=== PATIENT | male | born 1990 | race African-American/Black ===

== ENCOUNTER 2018-12-06 09:55 | Outpatient (CLI) | payer OTHER ==
[2018-12-06 12:18] LABS: HGB - HEMOGLOBIN 14.5 g/dL (14.0-18.0); MEAN CORPUSCULAR HGB CONC 31.8 g/dL (32.0-36.0); MEAN CORPUSCULAR VOLUME 84.8 fL (80.0-94.0); MEAN PLATELET VOLUME 10.3 fL (7.4-11.4); RED BLOOD COUNT 5.38 10^6/uL (4.70-6.10); RED CELL DISTRIBUTION WIDTH 12.9 % (12.0-15.0); WHITE BLOOD COUNT 7.9 x10^3/uL (4.8-10.8)
[2018-12-06 13:03] LABS: HB2 TOTAL 15.2 g/dL; HEMOGLOBIN A1C 0.52 g/dL; HEMOGLOBIN A1C % 5.3 % (4.6-6.2)
[2018-12-06 13:29] LABS: CHOL/HDL RATIO 5.1 (<5.0); CHOLESTEROL 214 mg/dL; HDL CHOLESTEROL 42 mg/dL; LDL CHOLESTEROL,CALCULATED 159 mg/dL; LDL/HDL RATIO 3.8 (<3.6); URIC ACID 6.6 mg/dL (2.6-7.2); VLDL CHOLESTEROL 13 mg/dL
[2018-12-06 13:30] LABS: CRP - C-REACTIVE PROTEIN < 1.0 mg/dL (0-1.0)
[2018-12-06 14:19] LABS: RHEUMATOID FACTOR NEGATIVE (Negative)
[2018-12-08 20:16] LABS: ANA SCREEN NEGATIVE (NEGATIVE)
== END 2018-12-06 10:05 | disposition home or self-care (01) ==
LOC: LAB.N 09:55
PROVIDERS: ATTEND Family Medicine
DX: E78.5 Hyperlipidemia, unspecified (principal); Z13.1 Encounter for screening for diabetes mellitus; R79.89 Other specified abnormal findings of blood chemistry
CPT/HCPCS: 36415; 80061; 83036; 83721; 84550; 85027; 85651; 86038; 86140; 86200; 86430

== ENCOUNTER 2020-03-31 08:00 | Outpatient (CLI) | payer OTHER ==
[2020-03-31 13:21] LABS: BASOPHILS % (AUTO) 0.6 %; EOSINOPHILS # (AUTO) 0.3 10^3/uL (0.0-0.7); HGB - HEMOGLOBIN 14.2 g/dL (14.0-18.0); LYMPHOCYTES # (AUTO) 1.7 10^3/uL (1.5-3.5); LYMPHOCYTES % (AUTO) 26.3 %; MEAN CORPUSCULAR HEMOGLOBIN 27.3 pg (27.0-31.0); MEAN CORPUSCULAR HGB CONC 31.8 g/dL (32.0-36.0); MEAN CORPUSCULAR VOLUME 85.8 fL (80.0-94.0); MEAN PLATELET VOLUME 10.3 fL (7.4-11.4); MONOCYTES # (AUTO) 0.7 10^3/uL (0.0-1.0); MONOCYTES % (AUTO) 10.3 %; NEUTROPHILS # (AUTO) 3.8 10^3/uL (1.5-6.6); NEUTROPHILS % (AUTO) 58.3 %; PLT - PLATELET COUNT 237 10^3/uL (130-450); RED CELL DISTRIBUTION WIDTH 12.7 % (12.0-15.0); WHITE BLOOD COUNT 6.5 x10^3/uL (4.8-10.8)
[2020-03-31 13:34] LABS: ALBUMIN 4.3 g/dL (3.2-5.5); ALBUMIN/GLOBULIN RATIO 1.2 (1.0-2.2); ALKALINE PHOSPHATASE 90 IU/L (42-121); ALT ALANINE AMINOTRANSFERASE 48 IU/L (10-60); AST ASPARTATE AMINOTRANSFERASE 37 IU/L (10-42); BILIRUBIN,TOTAL 0.7 mg/dL (0.2-1.0); BUN - BLOOD UREA NITROGEN 13 mg/dL (6-20); CALCIUM 9.3 mg/dL (8.5-10.3); CARBON DIOXIDE - CO2 26 mmol/L (21-32); CHLORIDE 104 mmol/L (101-111); CHOLESTEROL 244 mg/dL; CREATININE 1.1 mg/dL (0.6-1.2); GLUCOSE 98 mg/dL (70-100); HDL CHOLESTEROL 49 mg/dL; LDL CHOLESTEROL,CALCULATED 183 mg/dL; LDL/HDL RATIO 3.7 (<3.6); SODIUM 139 mmol/L (135-145); TOTAL PROTEIN 7.9 g/dL (6.7-8.2); VLDL CHOLESTEROL 12 mg/dL
== END 2020-03-31 23:59 | disposition home or self-care (01) ==
LOC: LAB.WCP 08:00
PROVIDERS: ATTEND Nurse Practitioner Family
DX: E78.5 Hyperlipidemia, unspecified (principal); I10 Essential (primary) hypertension
CPT/HCPCS: 36415; 80053; 80061; 83721; 84443; 85025

== ENCOUNTER 2020-12-14 09:46 | Outpatient (CLI) | payer OTHER ==
[2020-12-14 12:00] LABS: BASOPHILS # (AUTO) 0.1 10^3/uL (0.0-0.1); BASOPHILS % (AUTO) 0.8 %; EOSINOPHILS # (AUTO) 0.2 10^3/uL (0.0-0.7); EOSINOPHILS % (AUTO) 2.3 %; HCT - HEMATOCRIT 44.6 % (42.0-52.0); HGB - HEMOGLOBIN 14.2 g/dL (14.0-18.0); LYMPHOCYTES # (AUTO) 1.6 10^3/uL (1.5-3.5); LYMPHOCYTES % (AUTO) 24.8 %; MEAN CORPUSCULAR HEMOGLOBIN 27.2 pg (27.0-31.0); MEAN CORPUSCULAR HGB CONC 31.8 g/dL (32.0-36.0); MEAN CORPUSCULAR VOLUME 85.4 fL (80.0-94.0); MEAN PLATELET VOLUME 10.3 fL (7.4-11.4); MONOCYTES # (AUTO) 0.6 10^3/uL (0.0-1.0); MONOCYTES % (AUTO) 9.9 %; NEUTROPHILS % (AUTO) 61.7 %; PLT - PLATELET COUNT 241 10^3/uL (130-450); RED BLOOD COUNT 5.22 10^6/uL (4.70-6.10); WHITE BLOOD COUNT 6.4 x10^3/uL (4.8-10.8)
[2020-12-14 12:07] LABS: BILIRUBIN,URINE NEGATIVE (NEGATIVE); GLUCOSE, URINE (UA) NEGATIVE (NEGATIVE); KETONES,URINE (UA) NEGATIVE (NEGATIVE); LEUKOCYTE ESTERASE, URINE NEGATIVE (NEGATIVE); NITRITE,URINE NEGATIVE (NEGATIVE); OCCULT BLOOD,URINE TRACE-LYSE (NEGATIVE); PH,URINE 5.5 PH (5.0-7.5); PROTEIN,URINE NEGATIVE (NEGATIVE); UROBILINOGEN,URINE 0.2 (NORMAL) E.U./dL (NORMAL)
[2020-12-14 12:15] LABS: BACTERIA,URINE Rare /HPF (None Seen); CLARITY,URINE CLEAR (CLEAR); MUCUS,URINE Few Strands; RBC,URINE 0-5 /HPF (0-5); SQUAMOUS EPITHELIAL CELL,UR RARE Squamous (<= Few); WBC,URINE 0-3 /HPF (0-3)
[2020-12-14 12:24] LABS: ALBUMIN 4.3 g/dL (3.2-5.5); ALBUMIN/GLOBULIN RATIO 1.2 (1.0-2.2); ALKALINE PHOSPHATASE 98 IU/L (42-121); ALT ALANINE AMINOTRANSFERASE 63 IU/L (10-60); AST ASPARTATE AMINOTRANSFERASE 41 IU/L (10-42); BILIRUBIN,TOTAL 0.6 mg/dL (0.2-1.0); BUN - BLOOD UREA NITROGEN 11 mg/dL (6-20); CALCIUM 9.2 mg/dL (8.5-10.3); CARBON DIOXIDE - CO2 28 mmol/L (21-32); CHLORIDE 102 mmol/L (101-111); CHOL/HDL RATIO 4.8 (<5.0); CHOLESTEROL 232 mg/dL; CREATININE 1.1 mg/dL (0.6-1.2); GFR - MDRD 97 (>89); GLUCOSE 98 mg/dL (70-100); HDL CHOLESTEROL 48 mg/dL; LDL CHOLESTEROL,CALCULATED 173 mg/dL; LDL/HDL RATIO 3.6 (<3.6); SODIUM 141 mmol/L (135-145); TRIGLYCERIDES 57 mg/dL; VLDL CHOLESTEROL 11 mg/dL
[2020-12-14 12:30] LABS: ESTIMATED AVERAGE GLUCOSE 114 mg/dL (70-100); HEMOGLOBIN A1c% 5.6 % (4.27-6.07)
[2020-12-14 12:39] LABS: THYROID STIMULATING HORMONE 1.19 uIU/mL (0.34-5.60)
== END 2020-12-14 23:59 | disposition home or self-care (01) ==
LOC: LAB.WCP 09:46
PROVIDERS: ATTEND Nurse Practitioner
DX: I10 Essential (primary) hypertension (principal); E78.5 Hyperlipidemia, unspecified; E66.01 Morbid (severe) obesity due to excess calories; R53.83 Other fatigue
CPT/HCPCS: 36415; 80053; 80061; 81001; 83036; 83721; 84443; 85025; 87086

== ENCOUNTER 2021-01-13 07:40 | Emergency (ER) | payer OTHER ==
[2021-01-13] MEDS ORDERED: SUCRALFATE 1 GM/10 ML UDC PO STA (07:59)
[2021-01-13] MEDS ORDERED: MAG HYDROX/AL HYDROX/SIMETH 30 ML UDC PO STA (07:59)
--- NOTE | 2021-01-13 08:23 | ED Physician Documentation ---
History of Present Illness - Stated complaint Stated Complaint: CHEST PX - Chief complaint Chief Complaint: Cardiac - History obtained from History obtained from: Patient - History of Present Illness Timing: How many days ago (3) Pain level max: 2 Pain level now: 0 - Additonal information Additional information: 30-year-old male presents to the emergency department complaint of intermittent chest pain for the past year. He states he has had chest pain intermittently over the past 3 days. Has been seen multiple times he states for same. States normally thought to be due to gastritis or costochondritis. He states this morning he woke up with a burning pain in the back of his throat. Lasted about 1 minute and then resolved. Came in for evaluation. Nothing makes it better or worse. Currently asymptomatic. Review of Systems Constitutional: denies: Fever, Chills GI: denies: Vomiting Skin: denies: Rash Musculoskeletal: denies: Neck pain, Back pain Neurologic: denies: Focal weakness, Numbness, Headache PD PAST MEDICAL HISTORY - Past Medical History Past Medical History: Yes GI: GERD - Past Surgical History Past Surgical History: No - Present Medications Home Medications: Ambulatory Orders Medication Instructions Recorded Confirmed Ibuprofen [Motrin] 600 mg PO Q6H PRN #30 tab 07/12/13 10/23/14 Omeprazole [Prilosec] 20 mg PO DAILY #30 capsule. 10/23/14 - Allergies Allergies/Adverse Reactions: Allergies Allergy/AdvReac Type Severity Reaction Status Date / Time No Known Drug Allergies Allergy Verified 01/13/21 07:48 - Living Situation Living Situation: reports: With family Living Arrangement: reports: At home - Social History Does the pt smoke?: No Smoking Status: Never smoker Does the pt drink ETOH?: No Does the pt have substance abuse?: No - Immunizations Immunizations are current?: No - POLST Patient has POLST: No PD ED PE NORMAL - Vitals Vital signs reviewed: Yes - General General: Alert and oriented X 3, No acute distress - HEENT HEENT: Moist mucous membranes - Neck Neck: Supple, no meningeal sign - Cardiac Cardiac: RRR, Strong equal pulses - Respiratory Respiratory: No respiratory distress, Clear bilaterally - Abdomen Abdomen: Soft, Non tender, Non distended - Derm Derm: Warm and dry - Extremities Extremities: No edema, No calf tenderness / cord - Neuro Neuro: Alert and oriented X 3 Results - Vitals Vitals: Vital Signs - 24 hr 01/13/21 01/13/21 01/13/21 07:42 08:10 09:21 Temperature 37 C Heart Rate 106 H 94 93 Respiratory 18 15 18 Rate Blood Pressure 177/104 H 162/107 H 143/95 H O2 Saturation 98 100 99 01/13/21 10:14 Temperature Heart Rate 90 Respiratory 17 Rate Blood Pressure 135/74 H O2 Saturation 100 Oxygen O2 Source Room air - EKG (time done) 0743 Rate: Rate (enter#) (100) Rhythm: Sinus tachycardia [place]: Normal Intervals: Normal [place] QRS: Normal Ischemia: Normal ST segments - Labs Labs: Laboratory Tests 01/13/21 01/13/21 01/13/21 08:29 08:29 08:29 WBC 8.3 RBC 5.26 Hgb 14.2 Hct 44.8 MCV 85.2 MCH 27.0 MCHC 31.7 L RDW 13.2 Plt Count 251 MPV 9.2 Neut # (Auto) 5.5 Lymph # (Auto) 1.6 [place] # (Auto) 1.0 Eos # (Auto) 0.1 Baso # (Auto) 0.0 Absolute Nucleated RBC 0.00 Nucleated RBC % 0.0 Sodium 141 Potassium 3.7 Chloride 103 Carbon Dioxide 28 Anion Gap 10.0 BUN 15 Creatinine 1.0 Estimated GFR (MDRD) 108 Glucose 105 H Calcium 9.3 Total Bilirubin 0.5 AST 33 ALT 58 Alkaline Phosphatase 120 Troponin I High Sens 6.7 Total Protein 8.2 Albumin 4.3 Globulin 3.8 Albumin/Globulin Ratio 1.1 Lipase 32 - Rads (name of study) cxr Radiology: Final report received, EMP read contemporaneously, See rad report (no acute abnormality) PD MEDICAL DECISION MAKING - ED course Complexity details: reviewed results, re-evaluated patient, considered differential (No ST elevation [place], no aortic dissection, no PE, no tension pneumothorax, no aortic aneurysm), d/w patient ED course: Patient does feel better with a GI cocktail. Possible gastritis versus GERD. Recommend endoscopy with his doctor. He has been having chest pain for over a year, may benefit from a stress test, will leave this decision up to his doctor. Patient is well-appearing, nontoxic. Afebrile. Patient counseled regarding signs and symptoms for which I believe and urgent re-evaluation would be necessary. Patient with good understanding of and agreement to plan and is comfortable going home at this time This document was made in part using voice recognition software. While efforts are made to proofread this document, sound alike and grammatical errors may occur. Departure - Departure Disposition: 01 Home, Self Care Clinical Impression: Chest pain Qualifiers: Chest pain type: unspecified Qualified Code(s): R07.9 - Chest pain, unspecified Condition: Good Instructions: ED Chest Pain Atypical Unkn Cause Follow-Up: Ann Deal ARNP [Primary Care Provider] - Within 1 week Comments: The cause of your symptoms is unclear today. Please follow up with your doctor for further care. You should have an endoscopy for possible GERD/gastritis and a cardiac stress test. Discharge Date/Time: 01/13/21 10:15
[2021-01-13 08:45] LABS: BASOPHILS % (AUTO) 0.5 %; EOSINOPHILS # (AUTO) 0.1 10^3/uL (0.0-0.7); EOSINOPHILS % (AUTO) 1.6 %; HCT - HEMATOCRIT 44.8 % (42.0-52.0); HGB - HEMOGLOBIN 14.2 g/dL (14.0-18.0); LYMPHOCYTES # (AUTO) 1.6 10^3/uL (1.5-3.5); LYMPHOCYTES % (AUTO) 19.6 %; MEAN CORPUSCULAR HGB CONC 31.7 g/dL (32.0-36.0); MEAN CORPUSCULAR VOLUME 85.2 fL (80.0-94.0); MEAN PLATELET VOLUME 9.2 fL (7.4-11.4); MONOCYTES % (AUTO) 11.6 %; NEUTROPHILS # (AUTO) 5.5 10^3/uL (1.5-6.6); NEUTROPHILS % (AUTO) 66.1 %; PLT - PLATELET COUNT 251 10^3/uL (130-450); RED BLOOD COUNT 5.26 10^6/uL (4.70-6.10); RED CELL DISTRIBUTION WIDTH 13.2 % (12.0-15.0); WHITE BLOOD COUNT 8.3 x10^3/uL (4.8-10.8)
[2021-01-13 08:52] LABS: ALBUMIN 4.3 g/dL (3.2-5.5); ALBUMIN/GLOBULIN RATIO 1.1 (1.0-2.2); BILIRUBIN,TOTAL 0.5 mg/dL (0.2-1.0); CALCIUM 9.3 mg/dL (8.5-10.3); POTASSIUM 3.7 mmol/L (3.5-5.0); TOTAL PROTEIN 8.2 g/dL (6.7-8.2)
--- NOTE | 2021-01-13 08:56 | XRAY Report ---
PROCEDURE: Chest 1 View X-Ray INDICATIONS: Chest Pain TECHNIQUE: One view of the chest was acquired. COMPARISON: July 12, 2013 FINDINGS: SUPPORT DEVICES: None. LUNGS/PLEURA: No focal consolidation, pleural effusion or space-occupying pneumothorax. MEDIASTINUM: The cardiomediastinal silhouette is within normal limits. BONES/SOFT TISSUES: No acute abnormality. IMPRESSION: 1.No acute cardiopulmonary abnormality. Reviewed by: Holland Vasquez MD on 01/13/2021 8:55 AM PDT Approved by: Holland Vasquez MD on 01/13/2021 8:55 AM PDT Station ID: [id number]
[2021-01-13 10:15] VITALS: BP 135/74
== END 2021-01-13 10:15 | disposition home or self-care (01) ==
LOC: ED 07:40
DX: R07.9 Chest pain, unspecified (principal); R00.0 Tachycardia, unspecified
CPT/HCPCS: 36415; 71045; 80053; 83690; 84484; 85025; 93005; 99283; 99284; A9270

== ENCOUNTER 2021-04-19 08:00 | Outpatient (CLI) | payer OTHER | END 2021-04-19 23:59 | disposition home or self-care (01) | LOC: LAB.N 08:00 | PROVIDERS: ATTEND Physician Assistant Medical | DX: R06.02 Shortness of breath (principal); Z20.822 Contact with and (suspected) exposure to COVID-19 ==

== ENCOUNTER 2021-05-06 10:26 | Outpatient (CLI) | payer OTHER ==
--- NOTE | 2021-05-06 11:12 | CARDIAC PROCEDURE NOTE ---
Stress Test Report Service Date: 05/06/21 Service Time: 11:00 Ordering Provider: Chente Romano MD Indication for Test: Assess chest discomfort. Significant Medical History: Young man with morbid obesity, hypertension and intermittent history of both upper abdominal and lower chest discomfort. Reports prior diagnosis of "costochondritis" a couple of years ago. He was seen by Dr Romano in early January with concern for both upper abdominal and chest discomfort, latter primarily occurring with exertion. He had previously been quite active with regular Elliptical walking and attendant weight loss, but has decreased this activity during Covid pandemic for unclear reasons. He was started on omeprazole by Dr Romano with subsequent decrease in symptoms and underwent evaluation for possible GI endoscopy, which was deferred due to symptom improvement with ongoing PPI treatment. Cardiac Risk Factors: History of hypertension treated for 2-3 years and untreated hyperlipidemia; no prior tobacco smoking history, diabetes or awareness of close family members with heart attack or stroke. Type of Stress Test: ETT with Echocardiography Procedure: -Exercise Treadmill Test- After signing informed consent, the patient underwent resting echo imaging and then performed treadmill exercise using a Zhen protocol. The patient exercised for 7 minutes 38 seconds and achieved a peak heart rate of 188 (97 percent predicted maximum heart rate for age), and an estimated workload of 9.6 METS. The test was terminated primarily due to leg fatigue/discomfort, with increasing shortness of breath. Resting heart rate: 76 Peak heart rate: 188 Normal response to exercise. Resting BP: 160/98 Peak BP: 236/61 Hypertensive at baseline with physiologic response of systolic and diastolic BP to exercise. Rhythm during exercise: Sinus rhythm throughout. Symptoms: As above, with no report of chest or abdominal discomfort. EKG at rest showed normal sinus rhythm with rSr' pattern in V1/V2 consistent with partial RV conduction delay; QRS/ST/T morphologies otherwise normal. EKG at peak stress showed no ischemia by EKG criteria. In Recovery HR and BP normally decreased towards resting levels (122 and 153/55 at 7 minutes). Echo imaging was performed at rest and with stress will be reported separately. Ori Ramos MD, was present throughout this treadmill stress study and supervised it in its entirety. Summary: 1) Exercise tolerance markedly reduced for age as evidenced by SUJEY of 44%. 2) Normal resting EKG. 3) Adequate level of exercise was achieved on this treadmill stress test. 4) Hypertensive at rest with physiologic BP response to exercise. 5) No ischemic changes by EKG criteria were seen at peak stress. 6) Echo image interpretation reveals normal left ventricular size and systolic function, with appropriate hyperdynamic augmentation of all segments with exercise, indicating no evidence of prior infarct or inducible ischemia. No evidence of valvular abnormalities or elevated estimated pulmonary artery systolic pressure on limited rest screening. See separate report for more details. CONCLUSIONS: 1) Overall low risk treadmill stress echocardiogram with no symptom, EKG or echo evidence of inducible ischemia. 2) Reduced exercise capacity for age, likely related to poor conditioning, which he was encouraged to address, with increased aerobic activity. 3) Favorable response to PPI treatment suggests symptoms most likely GI in o rigin; he was advised to confer with his GI provider regarding PPI treatment recommendations.
== END 2021-05-06 10:27 | disposition home or self-care (01) ==
LOC: DI 10:26
PROVIDERS: ATTEND Family Medicine
DX: R07.89 Other chest pain (principal); I10 Essential (primary) hypertension; E78.5 Hyperlipidemia, unspecified; E66.01 Morbid (severe) obesity due to excess calories
CPT/HCPCS: 93016; 93017; 93018; 93350

== ENCOUNTER 2021-11-23 08:00 | Outpatient (CLI) | payer MEDICAID, OTHER ==
--- NOTE | 2021-11-24 12:31 | XRAY Report ---
PROCEDURE: Ankle 3 View LT INDICATIONS: L ANKLE PX TECHNIQUE: 3 views of the ankle were acquired. COMPARISON: None. FINDINGS: Bones: No fractures or dislocations. Ankle mortise is normally aligned. Mild degenerative joint di sease in ankle. Calcaneal spurring. No suspicious bony lesions. Soft tissues: Trace tibiotalar joint effusion. Achilles tendon appears normal. IMPRESSION: 1. Mild degenerative joint disease. 2. Calcaneal spurring. Reviewed by: Lupe Roblero MD on 11/24/2021 12:30 PM PDT Approved by: Lupe Roblero MD on 11/24/2021 12:30 PM PDT Station ID: [id number]
== END 2021-11-23 23:59 | disposition home or self-care (01) ==
LOC: DI.N 08:00
PROVIDERS: ATTEND Registered Nurse
DX: M19.072 Primary osteoarthritis, left ankle and foot (principal); M77.32 Calcaneal spur, left foot

== ENCOUNTER 2022-01-31 09:44 | Outpatient (CLI) | payer MEDICAID ==
[2022-01-31 12:21] LABS: BASOPHILS # (AUTO) 0.1 10^3/uL (0.0-0.1); BASOPHILS % (AUTO) 0.6 %; EOSINOPHILS # (AUTO) 0.2 10^3/uL (0.0-0.7); HCT - HEMATOCRIT 45.4 % (42.0-52.0); HGB - HEMOGLOBIN 14.3 g/dL (14.0-18.0); LYMPHOCYTES # (AUTO) 1.8 10^3/uL (1.5-3.5); LYMPHOCYTES % (AUTO) 21.6 %; MEAN CORPUSCULAR HEMOGLOBIN 26.2 pg (27.0-31.0); MEAN CORPUSCULAR HGB CONC 31.5 g/dL (32.0-36.0); MEAN CORPUSCULAR VOLUME 83.3 fL (80.0-94.0); MEAN PLATELET VOLUME 11.6 fL (7.4-11.4); MONOCYTES # (AUTO) 0.8 10^3/uL (0.0-1.0); NEUTROPHILS # (AUTO) 5.6 10^3/uL (1.5-6.6); NEUTROPHILS % (AUTO) 66.3 %; PLT - PLATELET COUNT 206 10^3/uL (130-450); RED BLOOD COUNT 5.45 10^6/uL (4.70-6.10); RED CELL DISTRIBUTION WIDTH 13.3 % (12.0-15.0); WHITE BLOOD COUNT 8.4 x10^3/uL (4.8-10.8)
[2022-01-31 12:46] LABS: ALBUMIN/GLOBULIN RATIO 0.9 (1.0-2.2); ALKALINE PHOSPHATASE 126 IU/L (42-121); ALT ALANINE AMINOTRANSFERASE 54 IU/L (10-60); AST ASPARTATE AMINOTRANSFERASE 36 IU/L (10-42); BILIRUBIN,TOTAL 0.5 mg/dL (0.2-1.0); BUN - BLOOD UREA NITROGEN 11 mg/dL (6-20); CALCIUM 9.2 mg/dL (8.5-10.3); CARBON DIOXIDE - CO2 29 mmol/L (21-32); CHLORIDE 101 mmol/L (101-111); GFR - MDRD 107 (>89); GLUCOSE 95 mg/dL (70-100); POTASSIUM 3.8 mmol/L (3.5-5.0); SODIUM 139 mmol/L (135-145); TOTAL PROTEIN 8.3 g/dL (6.7-8.2)
[2022-01-31 12:49] LABS: CRP - C-REACTIVE PROTEIN < 1.0 mg/dL (0-1.0)
[2022-01-31 12:57] LABS: THYROID STIMULATING HORMONE 1.51 uIU/mL (0.34-5.60)
[2022-01-31 12:59] LABS: FREE T4 (FREE THYROXINE) 0.84 ng/dL (0.58-1.64)
== END 2022-01-31 09:45 | disposition home or self-care (01) ==
LOC: LAB.N 09:44
PROVIDERS: ATTEND Nurse Practitioner
DX: R20.2 Paresthesia of skin (principal)
CPT/HCPCS: 36415; 80053; 84439; 84443; 85025; 85651; 86140

== ENCOUNTER 2022-02-22 09:53 | Outpatient (CLI) | payer MEDICAID ==
--- NOTE | 2022-02-23 11:57 | XRAY Report ---
PROCEDURE: Knee 2 View LT INDICATIONS: L KNEE PX TECHNIQUE: 2 views of the left knee(s) were acquired. COMPARISON: X-ray left knee, 06/21/2015. FINDINGS: Bones: No fractures or dislocations. No suspicious bony lesions. Mild tricompartmental knee joint d egeneration. Soft tissues: Small joint effusion. No suspicious soft tissue calcifications. IMPRESSION: 1. Mild degenerative joint disease. 2. Small knee joint fusion. Reviewed by: Lupe Roblero MD on 02/23/2022 11:56 AM PST Approved by: Lupe Roblero MD on 02/23/2022 11:56 AM PST Station ID: [id number]
== END 2022-02-22 23:59 | disposition home or self-care (01) ==
LOC: DI.N 09:53
PROVIDERS: ATTEND Nurse Practitioner
DX: M17.12 Unilateral primary osteoarthritis, left knee (principal); M25.462 Effusion, left knee

== ENCOUNTER 2022-04-04 15:14 | Outpatient (CLI) | payer MEDICAID ==
--- NOTE | 2022-04-04 15:24 | XRAY Report ---
PROCEDURE: Knee 4 View LT INDICATIONS: LEFT KNEE PAIN TECHNIQUE: 4 views of the left knee(s) were acquired. One view of the right knee COMPARISON: 02/22/2022 FINDINGS: Bones: No displaced fracture. No dislocation. Minimal medial compartment joint narrowing. Soft tissues: Small suspected joint effusion is present. Patella dharmesh. The partially visualized right knee is unremarkable. IMPRESSION: Patella dharmesh. No acute osseous abnormality otherwise. Suspected small joint effusion. If there is high concern for further derangement, consider MRI evaluation. Reviewed by: Supa Oneal MD on 04/04/2022 3:23 PM PST Approved by: Supa Oneal MD on 04/04/2022 3:23 PM PST Station ID: [id number]
== END 2022-04-04 15:16 | disposition home or self-care (01) ==
LOC: DI.WOS 15:14
PROVIDERS: ATTEND Orthopaedic Surgery
DX: M25.562 Pain in left knee (principal); M22.8X2 Other disorders of patella, left knee

== ENCOUNTER 2023-05-24 09:39 | Outpatient (CLI) | payer MEDICAID ==
[2023-05-24 12:16] LABS: BASOPHILS # (AUTO) 0.1 10^3/uL (0.0-0.1); BASOPHILS % (AUTO) 0.7 %; EOSINOPHILS # (AUTO) 0.2 10^3/uL (0.0-0.7); EOSINOPHILS % (AUTO) 2.6 %; HCT - HEMATOCRIT 43.5 % (42.0-52.0); HGB - HEMOGLOBIN 13.7 g/dL (14.0-18.0); LYMPHOCYTES % (AUTO) 28.4 %; MEAN CORPUSCULAR HEMOGLOBIN 26.2 pg (27.0-31.0); MEAN CORPUSCULAR HGB CONC 31.5 g/dL (32.0-36.0); MEAN CORPUSCULAR VOLUME 83.2 fL (80.0-94.0); MEAN PLATELET VOLUME 10.1 fL (7.4-11.4); MONOCYTES # (AUTO) 0.7 10^3/uL (0.0-1.0); MONOCYTES % (AUTO) 10.5 %; NEUTROPHILS % (AUTO) 57.4 %; PLT - PLATELET COUNT 247 10^3/uL (130-450); RED BLOOD COUNT 5.23 10^6/uL (4.70-6.10); RED CELL DISTRIBUTION WIDTH 13.5 % (12.0-15.0)
[2023-05-24 12:31] LABS: ALBUMIN 4.3 g/dL (3.2-5.5); ALBUMIN/GLOBULIN RATIO 1.3 (1.0-2.2); ALKALINE PHOSPHATASE 144 IU/L (42-121); ALT ALANINE AMINOTRANSFERASE 59 IU/L (10-60); AST ASPARTATE AMINOTRANSFERASE 30 IU/L (10-42); BILIRUBIN,TOTAL 0.5 mg/dL (0.2-1.0); BUN - BLOOD UREA NITROGEN 11 mg/dL (6-20); CALCIUM 9.4 mg/dL (8.5-10.3); CARBON DIOXIDE - CO2 32 mmol/L (21-32); CHLORIDE 101 mmol/L (101-111); CHOL/HDL RATIO 4.8 (<5.0); CHOLESTEROL 209 mg/dL; GFR - MDRD 106 (>89); GLUCOSE 101 mg/dL (74-104); HDL CHOLESTEROL 44 mg/dL; LDL CHOLESTEROL,CALCULATED 145 mg/dL; LDL/HDL RATIO 3.3 (<3.6); POTASSIUM 3.5 mmol/L (3.5-4.5); SODIUM 140 mmol/L (135-145); TOTAL PROTEIN 7.6 g/dL (6.4-8.9); TRIGLYCERIDES 98 mg/dL (48-352); VLDL CHOLESTEROL 20 mg/dL
[2023-05-24 12:36] LABS: THYROID STIMULATING HORMONE 1.13 uIU/mL (0.34-5.60)
[2023-05-24 20:51] LABS: ESTIMATED AVERAGE GLUCOSE 111 mg/dL (70-100); HEMOGLOBIN A1c% 5.5 % (4.27-6.07)
[2023-05-25 09:25] LABS: CRP - C-REACTIVE PROTEIN < 0.5 mg/dL (<0.5); URIC ACID 6.5 mg/dL (4.4-7.6)
== END 2023-05-24 09:40 | disposition home or self-care (01) ==
LOC: LAB.N 09:39
PROVIDERS: ATTEND Nurse Practitioner
DX: I10 Essential (primary) hypertension (principal); E78.5 Hyperlipidemia, unspecified; E66.01 Morbid (severe) obesity due to excess calories; R20.2 Paresthesia of skin; M79.672 Pain in left foot; M79.671 Pain in right foot
CPT/HCPCS: 36415; 80053; 80061; 82607; 83036; 83721; 84443; 84550; 85025; 86140

== ENCOUNTER 2023-07-14 07:00 | Outpatient (CLI) | payer MEDICAID ==
--- NOTE | 2023-07-14 17:20 | Ultrasound Report ---
PROCEDURE: Duplex Ext Veins Left INDICATIONS: EDEMA, HYPERTENSION TECHNIQUE: Real-time imaging, as well as color and pulse Doppler interrogation, were performed of the lower extr emity deep veins from the inguinal ligament to the popliteal fossa. Attempted visualization of the ca lf veins was performed. COMPARISON: None. FINDINGS: The deep veins are normally compressible, and free of intraluminal thrombus. Color and pu lse Doppler demonstrate normal phasic intraluminal flow. There is normal augmentation response to di stal compression maneuver. IMPRESSION: No deep venous thrombosis of the visualized lower extremity. Reviewed by: Adian Polanco MD on 07/14/2023 5:19 PM PDT Approved by: Adina Polanco MD on 07/14/2023 5:19 PM PDT Station ID: [id number]
--- NOTE | 2023-07-14 17:21 | Ultrasound Report ---
PROCEDURE: Ankle Brachial Index INDICATIONS: EDEMA, HYPERTENSION TECHNIQUE: Ankle-brachial indices were obtained bilaterally and recorded. COMPARISONS: None. FINDINGS: Right ankle brachial index (AYDE): 1.1 Left ankle brachial index (AYDE): 1.0 Right brachial blood pressure 175/109, brachial pressure 195/101 Left brachial pressure 116/95, ankle pressure 187/110. Right popliteal artery has a velocity of 54 cm/s with triphasic flow. Dorsalis pedis artery has a riki ocity of 63 cm/s with triphasic flow. Left popliteal artery has a velocity of 56 cm/s with triphasic flow. Dorsalis pedis artery has a [place] of 68 cm/s with triphasic flow. Healing potential: Ankle pressures >55 mm Hg in non-diabetics and >80 mm Hg in diabetics are likely to achieve primary h ealing of ischemic foot ulcers. Toe pressures >30 mm Hg are likely to achieve primary healing of ischemic foot ulcers, toe or transme tatarsal amputations. IMPRESSION: ABIs are within normal limits. Reviewed by: Adina Polanco MD on 07/14/2023 5:20 PM PDT Approved by: Adina Polanco MD on 07/14/2023 5:20 PM PDT Station ID: [id number]
== END 2023-07-14 07:01 | disposition home or self-care (01) ==
LOC: DI 07:00
PROVIDERS: ATTEND Physician Assistant Medical
DX: R60.9 Edema, unspecified (principal); I10 Essential (primary) hypertension
CPT/HCPCS: 93922

== ENCOUNTER 2023-09-19 21:42 | Emergency (ER) | payer MEDICAID ==
[2023-09-19 22:24] LABS: BILIRUBIN,URINE NEGATIVE (NEGATIVE); GLUCOSE, URINE (UA) NEGATIVE (NEGATIVE); KETONES,URINE (UA) NEGATIVE (NEGATIVE); LEUKOCYTE ESTERASE, URINE NEGATIVE (NEGATIVE); NITRITE,URINE NEGATIVE (NEGATIVE); OCCULT BLOOD,URINE TRACE-INTA (NEGATIVE); PH,URINE 6.5 PH (5.0-7.5); PROTEIN,URINE NEGATIVE (NEGATIVE); UROBILINOGEN,URINE 0.2 (NORMAL) E.U./dL (NORMAL)
[2023-09-19 22:25] LABS: CLARITY,URINE CLEAR (CLEAR)
[2023-09-19 22:46] LABS: BASOPHILS % (AUTO) 0.4 %; EOSINOPHILS # (AUTO) 0.2 10^3/uL (0.0-0.7); EOSINOPHILS % (AUTO) 2.2 %; HCT - HEMATOCRIT 42.2 % (42.0-52.0); HGB - HEMOGLOBIN 13.5 g/dL (14.0-18.0); LYMPHOCYTES # (AUTO) 2.3 10^3/uL (1.5-3.5); LYMPHOCYTES % (AUTO) 24.4 %; MEAN CORPUSCULAR HEMOGLOBIN 26.7 pg (27.0-31.0); MEAN CORPUSCULAR VOLUME 83.4 fL (80.0-94.0); MEAN PLATELET VOLUME 9.7 fL (7.4-11.4); MONOCYTES # (AUTO) 1.2 10^3/uL (0.0-1.0); MONOCYTES % (AUTO) 12.2 %; NEUTROPHILS # (AUTO) 5.7 10^3/uL (1.5-6.6); NEUTROPHILS % (AUTO) 60.4 %; PLT - PLATELET COUNT 222 10^3/uL (130-450); RED BLOOD COUNT 5.06 10^6/uL (4.70-6.10); RED CELL DISTRIBUTION WIDTH 13.7 % (12.0-15.0); WHITE BLOOD COUNT 9.4 x10^3/uL (4.8-10.8)
[2023-09-19] MEDS: SODIUM CHLORIDE 0.9% 1,000 ML IV STA (22:49)
--- NOTE | 2023-09-19 22:56 | ED Physician Documentation ---
History of Present Illness - Stated complaint Stated Complaint: HIGH HR - Chief complaint Chief Complaint: Cardiac - History obtained from History obtained from: Patient - Additonal information Additional information: Patient is a 33-year-old male with a history of Hypertension presenting for evaluation Palpitations that started approximately 45 minutes prior to arrival. Patient states he felt his heart racing that lasted for a few minutes. He reports feeling some shortness of air with this. No chest pain. No recent illness with fever, cough or congestion. Has chronic left upper quadrant pain for years and states is on omeprazole for this with no recent worsening. No vomiting or diarrhea.Recently had antihypertensives changed from amlodipine to triamterene with hydrochlorothiazide PD PAST MEDICAL HISTORY - Past Medical History Past Medical History: Yes Cardiovascular: Hypertension Respiratory: None Neuro: None Endocrine/Autoimmune: None GI: GERD : None HEENT: None Psych: None Musculoskeletal: None Derm: None - Past Surgical History Past Surgical History: No - Present Medications Home Medications: Ambulatory Orders Medication Instructions Recorded Confirmed Ibuprofen [Motrin] 600 mg PO Q6H PRN #30 tab 07/12/13 10/23/14 Omeprazole [Prilosec] 20 mg PO DAILY #30 capsule. 10/23/14 09/19/23 Triamterene/Hydrochlorothiazid 37.5 mg PO DAILY 09/19/23 09/19/23 [Triamterene-Hctz 37.5-25 mg Cp] - Allergies Allergies/Adverse Reactions: Allergies Allergy/AdvReac Type Severity Reaction Status Date / Time No Known Drug Allergies Allergy Verified 09/19/23 21:59 - Social History Does the pt smoke?: No Smoking Status: Never smoker Does the pt drink ETOH?: No Does the pt have substance abuse?: No - Immunizations Immunizations are current?: No - POLST Patient has POLST: No Results - Vitals Vitals: Vital Signs - 24 hr 09/19/23 09/19/23 09/20/23 21:50 23:39 00:19 Temperature 36.7 C 36.2 C L Heart Rate 108 H 91 74 Respiratory 16 15 16 Rate Blood Pressure 172/112 H 160/92 H 158/63 H O2 Saturation 100 99 99 Oxygen O2 Source Room air - Labs Labs: Laboratory Tests 09/19/23 09/19/23 09/19/23 22:06 22:40 22:40 WBC 9.4 RBC 5.06 Hgb 13.5 L Hct 42.2 MCV 83.4 MCH 26.7 L MCHC 32.0 RDW 13.7 Plt Count 222 MPV 9.7 Neut # (Auto) 5.7 Lymph # (Auto) 2.3 [place] # (Auto) 1.2 H Eos # (Auto) 0.2 Baso # (Auto) 0.0 Absolute Nucleated RBC 0.00 Nucleated RBC % 0.0 D-Dimer 224.2 Sodium Potassium Chloride Carbon Dioxide Anion Gap BUN Creatinine Estimated GFR (MDRD) Glucose Calcium Total Bilirubin AST ALT Alkaline Phosphatase Troponin I High Sens Total Protein Albumin Globulin Albumin/Globulin Ratio Lipase TSH Urine Color YELLOW Urine Clarity CLEAR Urine pH 6.5 Ur Specific [place] 1.015 Urine Protein NEGATIVE Urine Glucose (UA) NEGATIVE Urine Ketones NEGATIVE Urine Occult Blood TRACE-INTA Urine Nitrite NEGATIVE Urine Bilirubin NEGATIVE Urine Urobilinogen 0.2 (NORMAL) Ur Leukocyte Esterase NEGATIVE Ur Microscopic Review NOT INDICATED Urine Culture Comments NOT INDICATED 09/19/23 22:40 WBC RBC Hgb Hct MCV MCH MCHC RDW Plt Count MPV Neut # (Auto) Lymph # (Auto) [place] # (Auto) Eos # (Auto) Baso # (Auto) Absolute Nucleated RBC Nucleated RBC % D-Dimer Sodium 136 Potassium 3.4 L Chloride 99 L Carbon Dioxide 31 Anion Gap 6.0 BUN 19 Creatinine 1.3 Estimated GFR (MDRD) 78 L Glucose 102 Calcium 9.5 Total Bilirubin 0.3 AST 33 ALT 45 Alkaline Phosphatase 119 Troponin I High Sens 9.6 Total Protein 7.6 Albumin 4.2 Globulin 3.4 Albumin/Globulin Ratio 1.2 Lipase 16 TSH 1.29 Urine Color Urine Clarity Urine pH Ur Specific [place] Urine Protein Urine Glucose (UA) Urine Ketones Urine Occult Blood Urine Nitrite Urine Bilirubin Urine Urobilinogen Ur Leukocyte Esterase Ur Microscopic Review Urine Culture Comments PD Medical Decision Making - ED course Complexity details: reviewed results, re-evaluated patient, d/w patient ED course: Patient is a 33-year-old with a history of hypertension presenting for evaluation of palpitations. Palpitations resolved prior to arrival. EKG is reviewed and nonischemic with normal rhythm. Initially tachycardic in triage so CBC, chemistries, troponin, tsh and D-dimer were obtained and reviewed. No significant findings on lab testing. Potassium of 3.4 which was replaced orally. No events while on court recording monitor.No chest pain to suggest ACS. No pain to suggest dissection. Chest x-ray which I reviewed is without signs of pneumothorax or consolidation. Patient has been asymptomatic here. Counseled on need for close follow-up with primary care provider as well as concerning symptoms to return for. Departure - Departure Disposition: Home, Self Care Clinical Impression: Palpitations, Hypokalemia Condition: Stable Instructions: ED Palpitations Comments: You were evaluated for palpitations this evening. Your heart rate has been normal here and we have not seen any irregular rhythms on the monitor. Your lab testing is also reassuring. Your potassium was slightly low and we did give you potassium replacement for this. I would recommend close follow-up with your primary care doctor regarding your palpitations as you may need further testing or monitoring. Return to the ER if you develop any new or worsening symptoms. Forms: PCP List Discharge Date/Time: 09/20/23 00:56
[2023-09-19 23:03] LABS: ALBUMIN 4.2 g/dL (3.2-5.5); ALBUMIN/GLOBULIN RATIO 1.2 (1.0-2.2); BILIRUBIN,TOTAL 0.3 mg/dL (0.2-1.0); CALCIUM 9.5 mg/dL (8.5-10.3); CREATININE 1.3 mg/dL (0.6-1.3); POTASSIUM 3.4 mmol/L (3.5-4.5); TOTAL PROTEIN 7.6 g/dL (6.4-8.9)
[2023-09-19 23:08] LABS: TROPONIN I HIGH SENSITIVITY 9.6 ng/L (2.3-19.7)
[2023-09-19 23:15] LABS: THYROID STIMULATING HORMONE 1.29 uIU/mL (0.34-5.60)
--- NOTE | 2023-09-19 23:18 | XRAY Report ---
PROCEDURE: Chest 1V INDICATIONS: SOA TECHNIQUE: One view of the chest was acquired. COMPARISON: None. FINDINGS: Surgical changes and devices: None. Lungs and pleura: No dense consolidation or pleural effusion. Low lung volumes. Mediastinum: Cardiac mediastinal contours are unchanged Bones and chest wall: Unremarkable IMPRESSION: Limited single view radiograph without acute abnormality. Low lung volumes Reviewed by: Supa Oneal MD on 09/19/2023 11:17 PM PDT Approved by: Supa Oneal MD on 09/19/2023 11:17 PM PDT Station ID: [id number]
[2023-09-19 23:48] VITALS: O2SAT 99
[2023-09-20 00:22] VITALS: BP 158/63
[2023-09-20] MEDS: POTASSIUM BICARB 25 MEQ TABLET PO ONE (00:52)
== END 2023-09-20 00:56 | disposition home or self-care (01) ==
LOC: ED 21:42
DX: R00.2 Palpitations (principal); E87.6 Hypokalemia; I10 Essential (primary) hypertension; Z79.899 Other long term (current) drug therapy
CPT/HCPCS: 36415; 71045; 80053; 81003; 83690; 84443; 84484; 85025; 85379; 93005; 96360; 99283; 99284; A9270; 81001; 87086

== ENCOUNTER 2023-10-13 09:14 | Outpatient (CLI) | payer MEDICAID ==
[2023-10-13 12:46] LABS: CALCIUM 9.8 mg/dL (8.5-10.3); CREATININE 1.1 mg/dL (0.6-1.3); POTASSIUM 3.8 mmol/L (3.5-4.5)
== END 2023-10-13 09:15 | disposition home or self-care (01) ==
LOC: LAB.N 09:14
PROVIDERS: ATTEND Family Medicine
DX: R00.2 Palpitations (principal)
CPT/HCPCS: 36415; 80048